=== PATIENT | male | born 1985 | race Two or more races ===

== ENCOUNTER 2021-03-09 12:44 | Emergency (ER) | payer OTHER ==
[~2021-03-09] VITALS: Ht 182.9 cm; Wt 81.6 kg
[2021-03-09] MEDS ORDERED: ZYRTEC10 M3 PO (15:48)
[2021-03-09] MEDS ORDERED: ATARAX25 MG PO (15:48)
== END 2021-03-09 19:15 | disposition home or self-care (01) ==
LOC: ER 12:44
DX: R21 Rash and other nonspecific skin eruption (principal)

== ENCOUNTER 2021-09-06 00:42 | Emergency (ER) | payer OTHER ==
[~2021-09-06] VITALS: Ht 172.7 cm; Wt 90.7 kg
[~2021-09-06 00:42] MED LIST: ATARAX25 MG PO; ZYRTEC10 M3 PO
[2021-09-06] MEDS ORDERED: PEPCID40 MG PO (04:34)
[2021-09-06] MEDS ORDERED: ZOFRAN8 MG PO (04:34)
== END 2021-09-06 04:40 ==
LOC: ER 00:42
DX: K21.9 Gastro-esophageal reflux disease without esophagitis (principal)

== ENCOUNTER 2022-12-19 06:39 | Emergency (ER) | payer OTHER ==
[~2022-12-19] VITALS: Ht 152.4 cm; Wt 86.2 kg
[~2022-12-19 06:39] MED LIST changes: +PEPCID40 MG PO; +ZOFRAN8 MG PO
[2022-12-19] MEDS ORDERED: KETO10TA2 PO (08:41)
[2022-12-19] MEDS ORDERED: NORFLEX100MG PO ×2 (08:43→08:45)
[2022-12-19] MEDS ORDERED: KETOROLAC TROME10 MG PO (08:45)
== END 2022-12-19 10:06 | disposition home or self-care (01) ==
LOC: ER 06:39
DX: M62.838 Other muscle spasm (principal)